=== PATIENT | male | born 1950 | race Two or more races ===

== ENCOUNTER 2017-04-30 13:52 | Emergency (ER) | payer MEDICARE, OTHER ==
[~2017-04-30] VITALS: Ht 175.3 cm; Wt 77.1 kg
[~2017-04-30 13:52] MED LIST: NKM
[2017-04-30 14:42] VITALS: BP 141/96
[2017-04-30 14:45] LABS: BASOPHILS % (AUTO) 1.2 % (0.0-2.0); EOSINOPHILS % (AUTO) 1.2 % (0.0-3.0); LYMPHOCYTES % (AUTO) 24.5 % (20.0-45.0); MEAN CORPUSCULAR HGB CONC 33.8 G/DL (32.0-36.0); MEAN CORPUSCULAR VOLUME 89 FL (80-99); MONOCYTES % (AUTO) 4.4 % (1.0-10.0); NEUTROPHILS % (AUTO) 68.7 % (45.0-75.0); PLATELET COUNT 186 K/UL (150-450); RED BLOOD COUNT 4.01 M/UL (4.70-6.10); RED CELL DISTRIBUTION WIDTH 12.4 % (11.6-14.8); WHITE BLOOD COUNT 7.6 K/UL (4.8-10.8)
--- NOTE | 2017-04-30 14:46 | Emergency Room Report ---
History of Present Illness General Chief Complaint: Nausea Source: Patient, EMS Present Illness HPI Patient is a 66-year-old male brought in by EMS after increased vomiting. Patient had reportedly been vomiting earlier in the day. The patient was noted to have some decrease in his mental status according to the patient's daughter. The patient normally speaks in Senghalese. He reportedly had recently started on diabetes medications. He had not been having fever Allergies: Coded Allergies: No Known Allergies (Unverified , 04/30/17) Patient History Reviewed Nursing Documentation: PMH: Agreed, PSxH: Agreed Nursing Documentation-PMH Past Medical History: No History, Except For Hx Cerebrovascular Accident: Yes Physical Exam Vital Signs Date Time Temp Pulse Resp B/P (MAP) Pulse Ox O2 Delivery O2 Flow Rate FiO2 04/30/17 13:46 61 18 141/96 98 Room Air Medical Decision Making Diagnostic Impression: Primary Impression: Renal calculi Additional Impressions: Altered mental status, unspecified Dehydration Acute duodenitis ER Course Patient presented for altered mental status and vomiting. Differential diagnosis included but was not limited to ischemic stroke, subarachnoid hemorrhage, hypoglycemia, spinal cord injury, neurodegenerative disorder, urinary tract infection, hypoxemia.Because of complexity of patient's case laboratory testing and imaging studies were ordered. The patient was noted to have also some increased flank pain to his left flank. Patient had recently started on meloxicam. A CT of the abdomen pelvis read by radiology showed evidence of gastritis and duodenitis. The patient started on IV fluids and IV antiemetics. He was given IV pain medications. The patient appeared be somewhat confused. Patient's daughter stated she wanted to take the patient to a different facility and did not want to remain at this hospital with him despite risks of transfer. The patient daughter was advised risk benefits alternatives of leaving AGAINST MEDICAL ADVICE and he indicated understanding and all questions are answered patient still continued want to leave and signed AGAINST MEDICAL ADVICE. Despite risks including but not limited to disability and worsening of current lifestyle. Labs Test 04/30/17 14:10 White Blood Count 7.6 K/UL (4.8-10.8) Red Blood Count 4.01 M/UL (4.70-6.10) Hemoglobin 12.0 G/DL (14.2-18.0) Hematocrit 35.6 % (42.0-52.0) Mean Corpuscular Volume 89 FL (80-99) Mean Corpuscular Hemoglobin 30.0 PG (27.0-31.0) Mean Corpuscular Hemoglobin Concent 33.8 G/DL (32.0-36.0) Red Cell Distribution Width 12.4 % (11.6-14.8) Platelet Count 186 K/UL (150-450) Mean Platelet Volume 8.0 FL (6.5-10.1) Neutrophils (%) (Auto) 68.7 % (45.0-75.0) Lymphocytes (%) (Auto) 24.5 % (20.0-45.0) Monocytes (%) (Auto) 4.4 % (1.0-10.0) Eosinophils (%) (Auto) 1.2 % (0.0-3.0) Basophils (%) (Auto) 1.2 % (0.0-2.0) Sodium Level 139 MMOL/L (136-145) Potassium Level 4.2 MMOL/L (3.5-5.1) Chloride Level 106 MMOL/L (98-107) Carbon Dioxide Level 24 MMOL/L (21-32) Anion Gap 9 (5-15) Blood Urea Nitrogen 16 mg/dL (7-18) Creatinine 0.9 MG/DL (0.55-1.30) Estimat Glomerular Filtration Rate > 60 mL/min (>60) Glucose Level 119 MG/DL (74-106) Calcium Level 8.3 MG/DL (8.5-10.1) Total Bilirubin 0.5 MG/DL (0.2-1.0) Aspartate Amino Transf (AST/SGOT) 31 U/L (15-37) Alanine Aminotransferase (ALT/SGPT) 26 U/L (12-78) Alkaline Phosphatase 45 U/L (46-116) Troponin I 0.017 ng/mL (0.000-0.056) Total Protein 7.2 G/DL (6.4-8.2) Albumin 3.3 G/DL (3.4-5.0) Globulin 3.9 g/dL Albumin/Globulin Ratio 0.8 (1.0-2.7) Lipase 167 U/L (73-393) EKG Diagnostic Results Rate: normal Rhythm: NSR ST Segments: no acute changes Last Vital Signs Date Time Temp Pulse Resp B/P (MAP) Pulse Ox O2 Delivery O2 Flow Rate FiO2 10/11/17 14:42 87 18 141/96 98 Room Air Status: improved Disposition: AGAINST MEDICAL ADVICE Condition: Serious Referrals: [facility],REFERR (PCP) Semaj Choi Apr 30, 2017 14:46
--- NOTE | 2017-04-30 15:01 | Diagnostic Imaging Report ---
Indications: Altered mental status. Code stroke. Technique: Spiral acquisitions obtained through the brain. Angled axial and coronal 5 x 5 mm slices were reconstructed. Total dose length product 1449 mGycm. CTDI vol(s) 70 mGy. Dose reduction achieved using automated exposure control Comparison: None Findings: There is mild image degradation due to motion artifact. There is encephalomalacia of the right cerebellar hemisphere. There is evidence of overlying prior craniotomy There is extensive periventricular deep white matter chronic ischemic change. Focal sulcal dilatation in the right frontoparietal region likely indicates old cortical infarct. There is age-related enlargement of ventricles and extra axial CSF spaces. Old lacunar infarcts are seen in the right leray radiata. No acute hemorrhage or edema. No mass effect or midline shift. The calvarium is intact. The sinuses are clear. The orbits are unremarkable. The mastoids are clear. Impression: Chronic and age-related changes, as described. Multiple old infarcts, as described Right cerebellar encephalomalacia. Evidence of prior overlying craniotomy. Correlate with surgical history Negative for acute intracranial bleed or mass effect Stat code stroke findings phoned to Dr. Choi in the emergency room at the time of interpretation The CT scanner at [facility] is accredited by the [employer] and the scans are performed using protocols designed to limit radiation exposure to as low as reasonably achievable to attain images of sufficient resolution adequate for diagnostic evaluation.
[2017-04-30 15:20] LABS: ALANINE AMINOTRANSFERASE 26 U/L (12-78); ALBUMIN/GLOBULIN RATIO 0.8 (1.0-2.7); ANION GAP 9 (5-15); ASPARTATE AMINO TRANSFERASE 31 U/L (15-37); CALCIUM 8.3 MG/DL (8.5-10.1); CARBON DIOXIDE 24 MMOL/L (21-32); CHLORIDE 106 MMOL/L (98-107); CREATININE 0.9 MG/DL (0.55-1.30); GLOMERULAR FILTRATION RATE > 60 mL/min (>60); LIPASE 167 U/L (73-393); POTASSIUM 4.2 MMOL/L (3.5-5.1); SODIUM 139 MMOL/L (136-145); TOTAL PROTEIN 7.2 G/DL (6.4-8.2)
[2017-04-30] MEDS ORDERED: Morphine Sulfate 2mg/ml Inj IVP ONE (15:45)
--- NOTE | 2017-04-30 15:57 | Diagnostic Imaging Report ---
Clinical Indication: Abdominal pain Technique: No oral contrast utilized, per emergency room physician request IV administration nonionic contrast. Venous phase spiral acquisition obtained through the abdomen and pelvis. Multiplanar reconstructions were generated. Total dose length product 583 mGycm. CTDIvol(s) 10 mGy. Dose reduction achieved using automated exposure control Comparison: None Findings: There is a 6 mm calculus that appears to be within the bladder lumen the immediately adjacent to the right ureteral orifice. There is only minimal distal right hydroureter. There is a prominent right extrarenal pelvis, but no michael right hydronephrosis. There is no evidence of perinephric fat stranding or delayed renal opacification. Multiple calculi are seen in the left renal lower pole collecting system, measuring up to 6 mm long axis dimension. No left ureteral calculi, hydronephrosis, hydroureter. Subcentimeter low-attenuation lesion in the right renal lower pole is too small to characterize. No other focal renal parenchymal abnormality The appendix is normal. There are colonic diverticula, predominantly in the ascending colon. No evidence of diverticulitis. No small bowel distention. No free or loculated intraperitoneal air or fluid. The stomach is somewhat distended, demonstrates prominent enhancing rugal folds diffusely. There is also suggestion of mucosal thickening of the duodenum. There is questionably a small sliding-type hiatal hernia. The liver is equivocally mildly hypoattenuating. No focal abnormality. The gallbladder, bile ducts, pancreas, spleen, adrenals are unremarkable. The prostate is prominent. No pelvic mass or adenopathy. The included lung bases are clear. The heart is borderline enlarged. The bones are unremarkable except for minimal degenerative spondylosis. Impression: 6 mm calculus at or adjacent to the right ureteral orifice within the bladder. Most likely a ureteral calculus that has just passed or is about to pass. Minimal if any resultant hydronephrosis/hydroureter, no perinephric fat stranding Multiple nonobstructive left lower pole intrarenal calculi Mildly distended stomach. Prominent and somewhat enhancing rugal folds and possible duodenal mucosal thickening raises possibility of gastritis/duodenitis. Correlate with clinical findings Equivocal mild hepatic hypoattenuation, could indicate mild fatty change Prominent prostate Borderline cardiomegaly graft subcentimeter right lower pole renal lesion, too small to characterize, most likely benign cortical cyst. No further followup necessary Other findings as noted, including minimal degenerative spondylosis, equivocal small sliding-type hiatal hernia The CT scanner at [facility] is accredited by the [employer] and the scans are performed using protocols designed to limit radiation exposure to as low as reasonably achievable to attain images of sufficient resolution adequate for diagnostic evaluation.
[2017-04-30 16:26] VITALS: BP 146/92
[2017-04-30 16:27] VITALS: BP 146/92
== END 2017-04-30 16:27 | disposition left against medical advice (07) ==
LOC: EDBD 13:52 → EMR 14:19
DX: N20.0 Calculus of kidney (principal); R41.82 Altered mental status, unspecified; E86.0 Dehydration; K29.80 Duodenitis without bleeding; Z53.21 Procedure and treatment not carried out due to patient leaving prior to being seen by health care provider; R11.2 Nausea with vomiting, unspecified; Z86.73 Personal history of transient ischemic attack (TIA), and cerebral infarction without residual deficits
CPT/HCPCS: 36415; 70450; 74177; 80053; 83690; 84484; 85025; 96361; 96374; 96375; 99284; J2270; J2405; Q9967; S0028